=== PATIENT | female | born 1975 | race Caucasian/White ===

== ENCOUNTER 2018-07-03 14:18 | Emergency (ER) | payer OTHER ==
[~2018-07-03] VITALS: Ht 177.8 cm; Wt 127.0 kg
[2018-07-03 14:47] VITALS: BP 151/97
--- NOTE | 2018-07-03 14:56 | NUR ---
PT AMBULATORY PRESENTATION FOR L KNEE PAIN X2 WEEKS, REPORTS TWISTING KNEE. NORMAL RNAGE OF MOTION INTACT. PAIN 8/10. PT REPORTS MULTIPLE OTHER LIFE STRESSORS AT THIS TIME.
[2018-07-03] MEDS ORDERED: HYDROCODONE/APAP 5/325MG 1 EACH TABLET PO ONE (15:00)
--- NOTE | 2018-07-03 15:00 | NUR ---
VITALS 151/97, 98%, 103, 22.
[2018-07-03] MEDS ORDERED: HYDROCODONE/APAP 5/325MG 1 EACH TABLET ONE (15:01)
--- NOTE | 2018-07-03 15:50 | NUR ---
PT RESTING AT THIS TIME.
--- NOTE | 2018-07-03 16:10 | NUR ---
CALLED TO INFORM HIM THAT THE PT NEEDS A RIDE HOME. HE IS COMING FROM [facility] AND WILL BE HERE SOON HE CAN
--- NOTE | 2018-07-03 16:23 | NUR ---
PT PREPARED FOR D.C PER . PT WITH [facility] [employer]. PT [facility] FOR FOR TRANSPORT.
--- NOTE | 2018-07-03 17:12 | NUR ---
PT D/C, WHEELCHAIR EXIT TO FOR TRANSPORT.
== END 2018-07-03 17:19 | disposition home or self-care (01) ==
LOC: ER 14:36
DX: S83.092A Other subluxation of left patella, initial encounter (principal); F17.200 Nicotine dependence, unspecified, uncomplicated; Z98.890 Other specified postprocedural states; X50.1XXA Overexertion from prolonged static or awkward postures, initial encounter; Y93.89 Activity, other specified; Y92.89 Other specified places as the place of occurrence of the external cause; Y99.8 Other external cause status
CPT/HCPCS: 73564-TC

== ENCOUNTER 2018-08-06 15:32 | Inpatient (IN) | payer MEDICAID, OTHER ==
[~2018-08-06] VITALS: Ht 177.8 cm; Wt 146.1 kg
--- NOTE | 2018-08-06 16:00 | NUR ---
CAME IN FOR L FOOT SWELLING AND REDNESS. TO ER BED 14, HOOKED TO MONITOR, CHANGED TO GOWN, PROVIDED W WARM BLANKET, AWAITING MD VILLAGOMEZ.
--- NOTE | 2018-08-06 16:20 | NUR ---
DR KITCHEN AT BEDSIDE
[2018-08-06] MEDS ORDERED: TRAM50TA2 PO (16:50)
[2018-08-06 16:53] LABS: CALCIUM, SERUM 8.3 mg/dL (8.5-10.1); CREATININE 0.8 mg/dL (0.6-1.3)
[2018-08-06 17:17] LABS: BASOPHILS % (AUTO) 0.6 % (0.0-2.0); HEMATOCRIT 38 % (33-45); HEMOGLOBIN 12.4 g/dL (11.5-14.8); LYMPHOCYTES # (AUTO) 2.2 /CMM (0.8-4.8); LYMPHOCYTES % (AUTO) 27.8 % (20.0-44.0); MEAN CORPUSCULAR HGB CONC 33 g/dl (31.0-36.0); MEAN CORPUSCULAR VOLUME 82 fL (82-100); MONOCYTES # (AUTO) 0.4 /CMM (0.1-1.30); MONOCYTES % (AUTO) 4.9 % (2.0-12.0); NEUTROPHILS # (AUTO) 5.1 /CMM (1.8-8.9); NEUTROPHILS % (AUTO) 65.7 % (43.0-81.0); PLATELET COUNT (AUTO) 352 /CMM (150-450); WHITE BLOOD COUNT (AUTO) 7.8 K/uL (4.3-11.0)
[2018-08-06] MEDS ORDERED: HYDROCODONE/APAP 10/325MG 1 EA TABLET PO ONE (19:00)
[2018-08-06] MEDS ORDERED: AMLODIPINE BESYLATE 5 MG TABLET PO ONE (19:00)
[2018-08-06] MEDS ORDERED: HYDROCODONE/APAP 10/325MG 1 EA TABLET ONE (19:05)
[2018-08-06] MEDS ORDERED: AMLODIPINE BESYLATE 5 MG TABLET ONE (19:05)
[2018-08-06 20:00] VITALS: BP 135/95
[2018-08-06] MEDS ORDERED: HYDROCODONE/APAP 5/325MG 1 EACH TABLET PO PRN (20:00)
[2018-08-06] MEDS ORDERED: MAG HYDROX/AL HYDROX/SIMETH 30 ML UDC PO PRN (20:00)
[2018-08-06] MEDS ORDERED: diphenhydrAMINE HCL 50 MG/ML VIAL IV PRN (20:00)
[2018-08-06] MEDS ORDERED: TEMAZEPAM 15 MG CAPSULE PO PRN (20:00)
[2018-08-06] MEDS ORDERED: ONDANSETRON HCL/PF 4 MG/2 ML VIAL IVP PRN (20:00)
[2018-08-06] MEDS ORDERED: ACETAMINOPHEN 325 MG TABLET PO PRN (20:00)
[2018-08-06] MEDS ORDERED: MAGNESIUM HYDROXIDE 30 ML UDC PO PRN (20:00)
--- NOTE | 2018-08-06 20:02 | NUR ---
MS 207-1
--- NOTE | 2018-08-06 20:07 | NUR ---
REPORT GIVEN TO CIPRIANO KENDRICK FOR LORENE
[2018-08-06 20:45] VITALS: BP 135/95
--- NOTE | 2018-08-06 20:45 | NUR ---
RECEIVED PATIENT FROM ER FOR DX LEFT LOWER EXTREMITY CELLULITIS. AO X 3, ABLE TO MAKE NEEDS KNOWN. NO ACUTE DISTRESS NOTED. MONITORED FOR PAIN. IV SITE PATENT, INTACT; FLUSHED. SKIN ASSESSMENT DONE. SAFETY REMINDERS GIVEN. ON LOW BED WITH BILATERAL UPPER SIDE RAILS UP. WILL CONTINUE TO MONITOR.
[2018-08-06] MEDS ORDERED: VANCOMYCIN 1 GM in IV D5W 250ml IV SCH (21:00)
[2018-08-06] MEDS: IV NS 0.9% 1,000 ML IV PRN (22:05)
[2018-08-06] MEDS: HYDROCODONE/APAP 10/325MG 1 EA TABLET PO PRN (22:06)
[2018-08-06] MEDS ORDERED: VANCOMYCIN 1 GM VIAL ONE (22:10)
--- NOTE | 2018-08-07 06:00 | NUR ---
PATIENT ASLEEP, EASILY AROUSABLE. RESPIRATIONS EVEN. NO SIGNS OF PAIN NOTED. IVF INFUSING ORDERED. DUE MED GIVEN WITH NO ASE NOTED. NEEDS ATTENDED. SAFETY PRECAUTIONS AND COMFORT MEASURES IN PLACE. WILL GIVE REPORT TO DAY SHIFT FOR CONTINUITY OF CARE.
[2018-08-07 07:19] LABS: BASOPHILS # (AUTO) 0.1 /CMM (0.0-0.2); EOSINOPHILS % (AUTO) 1.9 % (0.0-6.0); HEMATOCRIT 38 % (33-45); HEMOGLOBIN 12.4 g/dL (11.5-14.8); LYMPHOCYTES # (AUTO) 2.1 /CMM (0.8-4.8); LYMPHOCYTES % (AUTO) 38.2 % (20.0-44.0); MEAN CORPUSCULAR HGB CONC 33 g/dl (31.0-36.0); MEAN CORPUSCULAR VOLUME 81 fL (82-100); MONOCYTES # (AUTO) 0.4 /CMM (0.1-1.30); MONOCYTES % (AUTO) 6.8 % (2.0-12.0); NEUTROPHILS # (AUTO) 2.9 /CMM (1.8-8.9); NEUTROPHILS % (AUTO) 52.1 % (43.0-81.0); PLATELET COUNT (AUTO) 322 /CMM (150-450); RED BLOOD CELL COUNT(AUTO) 4.64 MIL/uL (4.0-5.2); WHITE BLOOD COUNT (AUTO) 5.5 K/uL (4.3-11.0)
--- NOTE | 2018-08-07 07:30 | NUR ---
RN OPENING NOTES RECEIVED PATIENT IN BED RESTING. A/OX3, ABLE TO MAKE NEEDS KNOWN. NOT IN ANY FORM OF DISTRESS, NO SOB. TOLERATING ROOM AIR. IV ACCESS INTACT AND PATENT. KEPT PATIENT SAFE AND COMFORTABLE. BED IN LOW/LOCKED POSITION, SIDERAILS UPX2, CALL LIGHT INREACH. WILL CONTINUE TO MONITOR ACCORDINGLY.
[2018-08-07 07:31] LABS: CREATININE 0.6 mg/dL (0.6-1.3); MAGNESIUM 1.9 mg/dL (1.8-2.4); PHOSPHORUS 3.9 mg/dL (2.5-4.9); POTASSIUM 4.1 mmol/L (3.5-5.1)
[2018-08-07 07:41] LABS: THYROID STIMULATING HORMONE 2.509 uIU/mL (0.358-3.74)
[2018-08-07 08:00] VITALS: BP 148/98
[2018-08-07] MEDS: HYDROCODONE/APAP 10/325MG 1 EA TABLET PO PRN ×3 (09:01→18:29)
[2018-08-07] MEDS: VANCOMYCIN 1.25 GM in IV D5W 500 ML IV SCH ×2 (10:57→21:22)
[2018-08-07 16:00] VITALS: BP 141/98
[2018-08-07] MEDS ORDERED: FEE PK DOSING 1 MIN EA MC ONE (16:33)
--- NOTE | 2018-08-07 19:30 | NUR ---
RN NOTES RECEIVED PT. AWAKE ON BED, A/OX4, AMBULATORY, DENIES PAIN, NO SOB, CALL LIGHT WITHIN REACH, [id number], CONTINUE TO MONITOR
--- NOTE | 2018-08-07 19:30 | NUR ---
RN CLOSING NOTES PATIENT IN STABLE CONDITION, ALL NEEDS ATTENDED AND PROVIDED. ASSISTED WITH ADLS. ALL DUE MEDS GIVEN ORDERED. KEPT PATIENT SAFE AND COMFORTABLE. BED IN LOW/LOCKED POSITION, SIDERAILS UPX2, CALL [facility] IN REACH. ENDORSED TO NIGHT RN FOR LORENE.
[2018-08-07 20:00] VITALS: BP 143/90
[2018-08-07] MEDS: IV NS 0.9% 1,000 ML IV PRN (20:07)
--- NOTE | 2018-08-08 06:30 | NUR ---
RN NOTES SLEEPING BUT AROUSABLE, DENIES PAIN, NO SOB, MORNING CARE RENDERED, CALL LIGHT WITHIN REACH, [id number], PT. NEEDS ATTENDED
--- NOTE | 2018-08-08 07:10 | NUR ---
MS RN NOTES PATIENT IN BED ALERT ORIENTED X 4. NO ACUTE DISTRESS NOTED. BREATHING UNLABORED. NO SOB NOTED. IV ACCESS PATENT AND INTACT, NO REDNESS OR SWELLING NOTED. SAFETY MEASURES IN PLACE. CALL LIGHT WITHIN REACH. WILL CONTINUE TO MONITOR ACCORDINGLY.
[2018-08-08 08:00] VITALS: BP 145/93
[2018-08-08 08:45] LABS: CALCIUM, SERUM 8.6 mg/dL (8.5-10.1); CREATININE 0.7 mg/dL (0.6-1.3); POTASSIUM 4.3 mmol/L (3.5-5.1)
--- NOTE | 2018-08-08 09:38 | NUR ---
WOUND CARE CONSULT: PT PRESENTS WITH RESOLVING REDNESS AND SWELLING TO LEFT LOWER LEG. PT IS CONTINENT AND INDEPENDENT WITH BED MOBILITY. WILL SEE PRN.
[2018-08-08] MEDS: VANCOMYCIN 1.25 GM in IV D5W 500 ML IV SCH ×2 (10:27→10:29)
--- NOTE | 2018-08-08 10:50 | NUR ---
MS RN NOTES RECEIVED NEW ORDERS FROM DR IZABELLA SUMNER FOR IBUPROFEN 400 MG X 1 DOSE, NOTED AND CARRIED OUT. PATIENT REFUSED VANCOMYCIN IV, NOTIFIED DR IZABELLA SUMNER.
[2018-08-08] MEDS ORDERED: IBUPROFEN 400 MG TABLET PO ONE (11:00)
--- NOTE | 2018-08-08 11:20 | NUR ---
MS PRINTED [employer]ODUCTS ASSEMBLER NOTES PATIENT DISCHARGED HOME WITH STABLE VITAL SIGN. NO ACUTE DISTRESS NOTED. DISCHARGE INSTRUCTIONS GIVEN TO THE PATIENT INCLUDING FOLLOW UP WITH PRIMARY DOCTOR AND ORTHOPEDIC DOCTOR , NEW PRESCRIPTION SENT TO PREFERRED PHARMACY BY DR MARSHA SUMNER, VERBALIZED UNDERSTANDING. IV ACCESS REMOVED, NO REDNESS, NO BLEEDING ,NO SWELLING NOTED. ALL BELONGINGS ACCOUNTED FOR. NEEDS ATTENDED AND ANTICIPATED. ASSISTED TO THE LOBBY, PICKED UP VIA PRIVATE CAR BY FAMILY IN STABLE CONDITION. ALERT ORIENTED X 4.
== END 2018-08-08 11:20 | disposition home or self-care (01) | DRG 383 ==
LOC: ER 15:32 → MEDSG2 20:08
PROVIDERS: ADMIT Nurse Practitioner Acute Care; ATTEND Internal Medicine
DX: L03.116 Cellulitis of left lower limb (principal); E66.01 Morbid (severe) obesity due to excess calories; M71.22 Synovial cyst of popliteal space [Baker], left knee; Z68.42 Body mass index [BMI] 45.0-49.9, adult; M17.12 Unilateral primary osteoarthritis, left knee; Z98.891 History of uterine scar from previous surgery; Z82.49 Family history of ischemic heart disease and other diseases of the circulatory system; Z88.2 Allergy status to sulfonamides; Z98.890 Other specified postprocedural states; R73.9 Hyperglycemia, unspecified; F17.200 Nicotine dependence, unspecified, uncomplicated
CPT/HCPCS: 36415; 80048-TC; 80061-TC; 80202-TC; 83735-TC; 84100-TC; 84443-TC; 84702-TC; 85025-TC; 87081-TC; G0378; J3370; J7030; J7060